=== PATIENT | female | born 1990 | race American Indian/Alaskan Native ===

== ENCOUNTER 2021-02-05 00:15 | Inpatient (IN) | payer BC ==
[2021-02-05] MEDS ORDERED: LACTATED RINGERS 1,000 ML ONE (00:50)
[2021-02-05] MEDS ORDERED: LACTATED RINGERS 1,000 ML IV ONE (00:59)
[2021-02-05] MEDS ORDERED: BICITRA ORAL LIQD 30ML PO ONE (01:20)
[2021-02-05] MEDS ORDERED: FAMOTIDINE 20 MG/2 ML INJ IV ONE (01:20)
[2021-02-05] MEDS ORDERED: METOCLOPRAMIDE 10 MG/2 ML INJ IV ONE (01:20)
--- NOTE | 2021-02-05 01:25 | Anesthesia Day of Surgery ---
Anesthesia Day of Surgery - Day of Surgery Patient Examined: Yes Patient H&P Reviewed: Yes Patient is NPO: No (2099) Beta Blockers: No Cardiac Clearance: No Pulmonary Clearance: No Neil's Test: N/A
[2021-02-05] MEDS ORDERED: ONDANSETRON 4 MG/2 ML INJ IV PRN ×2 (01:27→05:08)
[2021-02-05] MEDS ORDERED: HYDROmorphone 1 MG/1 ML INJ IV PRN ×2 (01:27)
[2021-02-05] MEDS ORDERED: NALOXONE 0.4 MG/1 ML INJ IV PRN ×2 (01:27→05:08)
--- NOTE | 2021-02-05 01:27 | Anesthesia Consultation ---
Anesthesia Consult and Med Hx Date of service: 02/05/21 - Airway Anesthetic Teeth Evaluation: Good ROM Head & Neck: Adequate Mental/Hyoid Distance: Adequate Mallampati Class: Class II Intubation Access Assessment: Probably Good - Pulmonary Exam CTA: Yes - Cardiac Exam Cardiac Exam: RRR - Pre-Operative Health Status ASA Pre-Surgery Classification: ASA2, Emergency Proposed Anesthetic Plan: General, Spinal - Pulmonary Hx Smoking: No Hx Asthma: No Hx Respiratory Symptoms: No SOB: No COPD: No Home Oxygen Therapy: No Hx Pneumonia: No Hx Sleep Apnea: No - Cardiovascular System Hx Hypertension: No Hx Coronary Artery Disease: No Hx Heart Attack/AMI: No Hx Angina: No Hx Percutaneous Transluminal Coronary Angioplasty (PTCA): No Hx Cardia Arrhythmia: No Hx Pacemaker: No Hx Internal Defibrillator: No Hx Valvular Heart Disease: No Hx Heart Murmur: No Hx Peripheral Vascular Disease: No - Central Nervous System Hx Neuromuscular Disorder: No Hx Seizures: No CVA: No Hx Back Pain: No Hx Psychiatric Problems: No - Gastrointestinal Hx Ulcer: No Hx Gastroesophageal Reflux Disease: No - Endocrine Hx Renal Disease: No Hx End Stage Renal Disease: No Hx Cirrhosis: No Hx Liver Disease: No Hx Insulin Dependent Diabetes: No Hx Non-Insulin Dependent Diabetes: No Hx Thyroid Disease: No Hx Hypothyroidism: No Hx Hyperthyroidism: No - Hematic Hx Anemia: No Hx Sickle Cell Disease: No - Other Systems Hx Alcohol Use: Yes (niot since ) Hx Substance Use: No Hx Cancer: No Hx Obesity: No
[2021-02-05] MEDS ORDERED: ceFAZolin/Water 2 GM/20 ML 2 GM/20 ML SYRINGE IV ONE ×2 (01:29→02:06)
[2021-02-05] MEDS ORDERED: LACTATED RINGERS 1,000 ML IV SCH (01:30)
[2021-02-05 01:36] LABS: Basophils # (Auto) 0.1 K/mm3 (0.0-0.1); Basophils % (Auto) 0.5 % (0.0-1.8); Eosinophils # (Auto) 0.1 K/mm3 (0.0-0.4); Eosinophils % (Auto) 1.2 % (0.0-4.3); Hematocrit 34.2 % (30.3-42.9); Lymphocytes # (Auto) 2.3 K/mm3 (1.2-5.4); Mean Corpuscular HGB Conc 35 % (30-34); Mean Corpuscular Volume 89 fl (79-97); Monocytes # (Auto) 1.1 K/mm3 (0.0-0.8); Monocytes % (Auto) 9.3 % (0.0-7.3); Platelet Count 208 K/mm3 (140-440); Red Blood Count 3.86 M/mm3 (3.65-5.03); Red Cell Distribution Width 13.2 % (13.2-15.2)
[2021-02-05] MEDS ORDERED: KETAMINE/STERILE WATER 50 MG/ML SYRINGE ONE (01:47)
[2021-02-05] MEDS ORDERED: propofoL 200 MG/20 ML VIAL IV ONE (01:47)
[2021-02-05] MEDS ORDERED: SUCCINYLCHOLINE CHLORIDE 200 MG/10 ML INJ MDV ONE (01:47)
[2021-02-05] MEDS ORDERED: ceFAZolin/STERILE WATER 2 GM/20 ML SYRINGE IV ONE (02:00)
[2021-02-05] MEDS ORDERED: SODIUM CHLORIDE 0.9% IRR 1,500 ML BOTTLE IR ONE (02:00)
[2021-02-05] MEDS ORDERED: OXYTOCIN DRIP 30 UNITS/500 ML BAG IV SCH ×2 (02:00→05:08)
[2021-02-05] MEDS ORDERED: WATER FOR IRRIG STERILE 1,500 ML BOTTLE IR ONE (02:00)
[2021-02-05] MEDS ORDERED: KETOROLAC 30 MG/1 ML INJ ONE (02:14)
[2021-02-05] MEDS ORDERED: ONDANSETRON 4 MG/2 ML INJ ONE ×2 (02:16)
[2021-02-05] MEDS ORDERED: dexAMETHasone 20 MG/5 ML VIAL ONE (02:16)
[2021-02-05] MEDS ORDERED: HYDROmorphone 1 MG/1 ML INJ ONE ×2 (02:22)
[2021-02-05 02:26] LABS: Bacteria,Urine 1+ /HPF (Negative); Bilirubin,Urine NEG (Negative); Blood,Urine NEG (Negative); Color,Urine Straw (Yellow); Mucus,Urine FEW /HPF; Protein,Urine <15 mg/dL mg/dL (Negative); RBC,Urine < 1.0 /HPF (0.0-6.0); Urobilinogen,Urine < 2.0 mg/dL (<2.0); WBC,Urine < 1.0 /HPF (0.0-6.0)
[2021-02-05 02:31] LABS: Amphetamine Screen,Urine Negative; Benzodiazepines Screen,Urine Negative; Cannabinoid Screen,Urine Negative; Cocaine Screen,Urine Negative; Methadone Screen,Urine Negative; Opiate Screen,Urine Negative
[2021-02-05] MEDS ORDERED: BUPIVACAINE/PF (0.25%) 2.5 MG/ML 30 ML VIAL INFILTRATI ONE ×3 (03:05)
--- NOTE | 2021-02-05 03:14 | History and Physical Report ---
History of Present Illness Date of examination: 02/05/21 Date of admission: 02/05/21 01:52 Chief complaint: I'm bleeding History of present illness: Patient is a 30-year-old 4 para 3 who presents at 29 weeks and 3 days with complaint of heavy vaginal bleeding and pain. Upon entry to triage patient was found to be having variable decelerations. Patient reports that the has renal enlargement and that she was told the would likely not live for long after . Patient receives care at the [facility] in [place]. No records were available for review. Past History Past Medical History: no pertinent history Past Surgical History: no surgical history Social history: single - Obstetrical History Expected Date of Delivery: 04/20/21 Actual Gestation: 29 Week(s) 3 Day(s) : 4 Para: 3 Number of Living Children: 3 Medications and Allergies Allergies Allergy/AdvReac Type Severity Reaction Status Date / Time No Known Allergies Allergy Unverified 02/05/21 00:59 Active Meds: Active Medications Hydromorphone HCl (Hydromorphone 1 Mg/1 Ml Inj) 0.5 mg IV Q5M PRN PRN Reason: BREAK Stop: 02/05/21 08:52 Hydromorphone HCl (Hydromorphone 1 Mg/1 Ml Inj) 0.5 mg IV Q4H PRN PRN Reason: breakthrough pain > 7/10 Lactated Ringer's (Lactated Ringers) 1,000 mls @ 2,250 mls/hr IV PREOP RELL Stop: 02/06/21 01:57 Oxytocin/Sodium Chloride (Pitocin/Ns 30 Unit/500ml) 30 units in 500 mls @ 0 mls/hr IV TITR RELL; Protocol Naloxone HCl (Naloxone 0.4 Mg/1 Ml Inj) 0.2 mg IV Q2MIN PRN PRN Reason: Res Rate </= 8 or 02 SAT < 92% Ondansetron HCl (Ondansetron 4 Mg/2 Ml Inj) 4 mg IV Q8H PRN PRN Reason: Nausea And Vomiting Sodium Chloride (Sodium Chloride 0.9% 10 Ml Flush Syringe) 10 ml IV PRN NR Stop: 02/06/21 01:59 Review of Systems All systems: negative Eyes: deferred Ears, nose, mouth and throat: deferred Genitourinary: vaginal bleeding, leakage of fluid, contractions - Vital Signs Vital signs: Vital Signs Temp Pulse Resp BP Pulse Ox 98.5 F 82 18 113/78 100 02/05/21 00:42 02/05/21 00:42 02/05/21 00:42 02/05/21 00:42 02/05/21 00:42 Temp Pulse Resp BP Pulse Ox 98.5 F 100 H 18 113/78 100 02/05/21 00:42 02/05/21 01:47 02/05/21 00:42 02/05/21 00:42 02/05/21 01:47 - Physical Exam Breasts: Positive: deferred Cardiovascular: Regular rate, Normal S1, Normal S2 Lungs: Positive: Clear to auscultation, Normal air movement Abdomen: Positive: normal appearance, soft, normal bowel sounds. Negative: distention, tenderness Genitourinary (Female): Positive: normal external genitalia, normal perenium Vulva: both: normal Vagina: Positive: normal moisture. Negative: discharge Cervix: Negative: lesion, discharge Uterus: Positive: normal size, normal contour Adnexa: both: normal Anus/Rectum: Positive: normal perianal skin, heme negative. Negative: rectal mass, hemorrhoids Extremities: Deep Tendon Reflex Grade: Normal +2 - Obstetrical FHR: category 2 Results Result Diagrams: 02/05/21 14:20 Abnormal lab results 02/05/21 Range/Units 01:08 WBC 12.0 H (4.5-11.0) K/mm3 MCHC 35 H (30-34) % Eagle % (Auto) 9.3 H (0.0-7.3) % [place] # (Auto) 1.1 H (0.0-0.8) K/mm3 Seg Neutrophils # 8.4 H (1.8-7.7) K/mm3 All other labs normal. Assessment and Plan IUP at 29 weeks and 3 days with signs and symptoms of placental abruption. As no records are available for review, we will proceed with urgent section. Consents have been signed and placed on the chart.
--- NOTE | 2021-02-05 03:15 | Procedure Note ---
OB Delivery Note - Delivery Date of Delivery: 02/05/21 Surgeon: JUSTYN SHRESTHA Estimated blood loss: other (600) - Section Preop diagnosis: nonreassuring FHR tracing, other (bleeding) Postop diagnosis: same (with placental abruption) section procedure: primary low transverse Disposition: PACU Narrative: see op note - A at 1 minute: 2 at 5 minutes: 4 (10 =4) Gender: Female
--- NOTE | 2021-02-05 03:18 | Operative Report ---
Operative Report Operative Report: Preoperative diagnosis: Intrauterine at 29.3 weeks 2. Vaginal bleeding 3. NRFHTs Postoperative diagnosis: Same with placental abruption Procedure: Emergent Primary low transverse section Surgeon: Dr. Paulette Gomez EBL: 600 Urine output: 100 mL IV fluids: 1000 mL Findings: Viable female in the Weight 3 lbs. 1 oz. Apgars 2 and 2, 4. Otherwise normal pelvic anatomy Specimens: Placenta with obvious abruption Complications: None Procedure: The patient was admitted to the OR with IV running and in place. She was properly identified as herself. she was prepped and draped in the normal fa shion. She was then given general anesthesia in the OR without difficulty. She was placed in the dorsal supine position with a leftward tilt. A Triana catheter had been inserted prior to entry in to the OR. The incision was made with the scalpel and carried to the underlying fascia using the scalpel and the Bovie. The fascia was incised in the midline and incision was extended bilaterally using the curved Villarreal scissors. The fascia was then dissected from the underlying rectus muscles in a series of sharp and blunt dissection using the Villarreal scissors. Muscles were in the in the midline sharply using Metzenbaum scissors and the peritoneum was entered into bluntly using the surgeon's fingers. A bladder blade was then placed into the incision to protect the bladder. Following this the bladder flap was created. Hysterotomy incision was then made in the scalpel. Upon uterine entry, the amniotic sac was ruptured for bloody fluid. The was then delivered without difficulty. . The cord was clamped and cut and she was handed to the waiting NICU personnel. Pieces of the placenta were extruded immediately post delivery of the baby without prompting. The uterus was then exteriorized and cleared of all clots and debris. The hysterotomy incision was then closed in a running locked fashion using 0 Vicryl. The abdomen was then copiously irrigated with warm normal saline.Following this the uterus was replaced into the abdominal cavity. At this point the muscles were reapproximated in the midline using individual sutures of 0 Vicryl. Following this the fascia was closed in a running fashion using 0 Vicryl. Tissue was then copiously irrigated. Skin was closed in a running fashion using 3-0 Monocryl. The sponge lap needle and instrument counts were correct 2. The patient tolerated the procedure well. She was taken to recovery in stable condition.
--- NOTE | 2021-02-05 03:40 | Progress Note ---
Regional Anesthesia Block - Regional Anesthesia Block Start Time: 03:09 Stop Time: :19 Performed By:: JEROME OHARA Procedure: Patient consented for TAP block for post surgical pain management. Patient identified, monitors placed, and time out performed. TAP identified bilaterally via ultrasound. Skin prepped bilaterally with [chlorhexidine] and [22g stimuplex] needle advanced to the TAP. [Marcaine 0.25% 30ml] injected under ultrasound guidance on the [left] side. [Marcaine 0.25% 30ml] injected under ultrasound guidance on the [right] side. Negative aspiration every 5mL, No change in heart rate or rhythm. Patient tolerated the procedure well. No apparent complications seen.
[2021-02-05 04:31] LABS: Hepatitis C Virus Antibody Non-Reactive (NonReactive)
[2021-02-05] MEDS ORDERED: SIMETHICONE 80 MG CHEW TAB PO PRN (05:08)
[2021-02-05] MEDS ORDERED: WITCH HAZEL/ GLYCERIN PAD TP PRN (05:08)
[2021-02-05] MEDS ORDERED: LANOLIN/ZINC/DIMETHICONE (LANSINOH) 7 GM TP PRN (05:08)
[2021-02-05] MEDS ORDERED: MORPHINE 4 MG/1 ML INJ IV PRN (05:08)
[2021-02-05] MEDS ORDERED: ACETAMINOPHEN 325 MG TAB PO PRN (05:08)
[2021-02-05] MEDS: D5W/LACTATED RINGERS 1,000 ML IV SCH ×2 (06:16→13:38)
[2021-02-05] MEDS: oxyCODONE /ACETAMINOPHEN 5-325MG TAB PO PRN ×3 (07:30→21:34)
[2021-02-05] MEDS: IBUPROFEN 800 MG TAB PO PRN (12:39)
[2021-02-05] MEDS: PRENATAL VIT27-FE FUMARATE-FOLIC ACID VIT TAB PO SCH (12:39)
--- NOTE | 2021-02-05 14:59 | Post Anesthesia Evaluation ---
- Post Anesthesia Evaluation Patient Participated: Yes Airway Patent: Yes Stable Respiratory Function: Yes Nausea/Vomiting: No Temp > 96.8F: Yes Pain Manageable: Yes Adequeate Hydration: Yes Anesthesia Complications: No Block Receding Appropriately: Yes Patient on Ventilator: No
[2021-02-05 15:07] LABS: Hematocrit 33.8 % (30.3-42.9); Hemoglobin 11.3 gm/dl (10.1-14.3)
[2021-02-06] MEDS: oxyCODONE /ACETAMINOPHEN 5-325MG TAB PO PRN ×3 (05:56→22:42)
[2021-02-06] MEDS: PRENATAL VIT27-FE FUMARATE-FOLIC ACID VIT TAB PO SCH (10:21)
[2021-02-06] MEDS: IBUPROFEN 800 MG TAB PO PRN (12:18)
--- NOTE | 2021-02-06 13:06 | Consultation ---
History of Present Illness - Reason for Consult Consult date: 02/06/21 Reason for consult: Mental health evaluation - Chief Complaint Chief complaint: I'm bleeding - History of Present Psychiatric Illness Gloria Kim is a 30 year female with no prior psychiatric history and she is naive to psychotropic medications. In my interview with the patient, she reports feeling depressed due to the demise of her baby, states symptoms as sadness, anger and some anxiety; she rates depression as 9/10 on a scale of 1-10 and 10 being the worst. She reports having three other children and has family support. She denies any current suicidal/ homicidal ideation and denies hallucination. Diagnoses: Denies Suicide attempts or Self-harm behavior: Denies Prior psychiatric hospitalizations: Denies Substance Abuse history: Denies Previous psychiatric medications tried: Denies Outpatient treatment: Denies PAST MEDICAL HISTORY: unknown Family Psychiatric History: None reported or documented SOCIAL HISTORY Marital Status: Living Arrangements: Lives with family Employment Status: unknown Access to guns/weapons: Denies Education: 2 year college History of Abuse: none reported Legal History: none reported REVIEW OF SYSTEMS Constitutional: Negative for weight loss ENT: Negative for stridor Respiratory: Negative for cough or hemoptysis All other systems reviewed and are negative MENTAL STATUS EXAMINATION General Appearance and Behavior: Age appropriate, dressed appropriately, calm and cooperative Cooperation: Participating Psychomotor Behavior: psychomotor normal Mood: Depressed Affect and affective range: Congruent with stated mood Thought Process: goal directed Thought Content: Not SI Speech: Normal volume, Regular rate and rhythm, Intellectual Functioning: Average Suicidal Ideation: Denied Homicidal Ideation: Denies Hallucinations: Denies Delusions: None elicited Impulse Control: Unimpaired Insight and Judgment: Limited insight and judgment Memory: Normal Attention: Undivided Orientation: Alert, oriented Assessment and Plan (1)Schizophrenia-F20.9 Treatment plan Start Prozac 10mg po daily Start Trazodone 50mg po QHS Risks, benefits and alternatives of medications discussed with the patient, blair wagoner answered and consent obtained from patient. PSYCHOTHERAPY: Supportive psychotherapy provided MEDICAL: Per primary team DELIRIUM PRECAUTIONS: Please re-orient patient frequently, keep lights on during the day, and minimize benzodiazepines and opiates as these medications could worsen patient's confusion. COMPLIANCE PARALEGAL: Per medical team DISPOSITION: Do not recommend acute inpatient psychiatric hospitalization at this time. The patient understands that if suicidal or homicidal thoughts are to arise she is to seek immediate assistance. The field assessor to place resources on the chart FOLLOW-UP: Will sign off Thank you for the consult. Please contact with any questions and/or concerns. Case staffed with Dr. Pemberton Mental Status Exam Medications and Allergies Allergies Allergy/AdvReac Type Severity Reaction Status Date / Time No Known Allergies Allergy Unverified 02/05/21 00:59 Home Medications Medication Instructions Recorded Confirmed Last Taken Type FLUoxetine [PROzac] 10 mg PO QDAY 30 Days #30 tablet 02/06/21 Unknown Rx traZODone [Desyrel] 50 mg PO QHS 30 Days #30 tab 02/06/21 Unknown Rx Active Meds: Active Medications Acetaminophen (Acetaminophen 325 Mg Tab) 650 mg PO Q4H PRN PRN Reason: Fever >100.5/KELLER Fluoxetine HCl (Fluoxetine 10 Mg Tab) 10 mg PO QDAY RELL Oxytocin/Sodium Chloride (Pitocin/Ns 30 Unit/500ml) 30 units in 500 mls @ 40 mls/hr IV TITR RELL; Protocol Dextrose/Lactated Ringer's (D5lr) 1,000 mls @ 125 mls/hr IV DIRECT RELL Last Admin: 02/05/21 13:38 Dose: 125 mls/hr Documented by: Ibuprofen (Ibuprofen 800 Mg Tab) 800 mg PO Q6H PRN PRN Reason: Pain, Moderate (4-6) Last Admin: 02/06/21 12:18 Dose: 800 mg Documented by: Morphine Sulfate (Morphine 4 Mg/1 Ml Inj) 4 mg IV Q4H PRN PRN Reason: Pain , Severe (7-10) Last Admin: 02/05/21 06:21 Dose: 4 mg Documented by: Multi-Ingredient Ointment (Lanolin/Zinc/Dimethicone (Lansinoh) 7 Gm) 1 applic TP PRN PRN PRN Reason: dryness/cracking Multivitamins/Iron/Calcium ( [id number]-Mv Fumarate-Folic Acid Vit Tab) 1 each PO QDAY RELL Last Admin: 02/06/21 10:21 Dose: 1 each Documented by: Naloxone HCl (Naloxone 0.4 Mg/1 Ml Inj) 0.1 mg IV Q2MIN PRN PRN Reason: Res Rate </= 8 or 02 SAT < 92% Ondansetron HCl (Ondansetron 4 Mg/2 Ml Inj) 4 mg IV Q8H PRN PRN Reason: Nausea And Vomiting Oxycodone/Acetaminophen (Oxycodone /Acetaminophen 5-325mg Tab) 2 tab PO Q4H PRN PRN Reason: Pain, Moderate (4-6) Last Admin: 02/06/21 12:17 Dose: 2 tab Documented by: Simethicone (Simethicone 80 Mg Chew Tab) 80 mg PO Q6H PRN PRN Reason: Gas pain Trazodone HCl (Trazodone 50 Mg Tab) 50 mg PO QHS RELL Witch Symone/Glycerin (Witch Syomne/ Glycerin Pad) 1 each TP PRN PRN PRN Reason: Hemorrhoids/cleansing/soothing Mental Status Exam - Vital signs Last Vital Signs Temp 98.0 F 02/06/21 12:12 Pulse 73 02/06/21 12:12 Resp 20 02/06/21 12:12 BP 122/66 02/06/21 12:12 Pulse Ox 100 02/06/21 12:12 Results Result Diagrams: 02/05/21 14:20 All other labs normal.
--- NOTE | 2021-02-06 13:29 | Progress Note ---
Subjective - Subjective Date of service: 02/06/21 Interval history: Patient is a 30-year-old 4 para 3 who presents at 29 weeks and 3 days with complaint of heavy vaginal bleeding and pain. Upon entry to triage patient was found to be having variable decelerations. Patient reports that the has renal enlargement and that she was told the would likely not live for long after . Patient receives care at the [facility] in [place]. No records were available for review. Patient reports: appetite normal, voiding normally, pain well controlled, ambulating normally : Objective - Vital Signs Latest vital signs: Vital Signs Temp Pulse Resp BP BP Pulse Ox Pulse Ox 02/06/21 12:12 98.0 F 73 20 122/66 100 02/06/21 08:00 0 L 02/06/21 07:25 97.8 F 71 16 104/70 100 02/06/21 05:54 100 02/06/21 04:49 98.2 F 85 20 109/63 100 02/06/21 04:30 100 02/06/21 02:10 98 02/06/21 00:25 98.2 F 65 20 108/46 100 02/05/21 23:21 99 02/05/21 21:32 100 02/05/21 21:10 98.0 F 76 20 96/54 100 02/05/21 19:25 99 02/05/21 16:29 98.8 F 94 H 18 104/68 100 Intake and Output 02/05/21 02/06/21 02/06/21 22:59 06:59 14:59 Intake Total 840 360 200 Output Total 1200 800 Balance -360 -440 200 Intake: Oral 480 360 200 Intake, Free Water 360 Output: Urine 1200 800 Indwelling Catheter 1200 Void 800 Other: Total, Intake Amount 240 120 200 Total, Output Amount 1200 500 # Voids Void 1
[2021-02-06] MEDS: FLUoxetine 10 MG TAB PO SCH (14:44)
[2021-02-06] MEDS ORDERED: traZODone 50 MG TAB PO SCH (22:00)
--- NOTE | 2021-02-06 22:53 | Discharge Summary ---
Providers - Providers Date of Admission: 02/05/21 01:52 Date of discharge: 02/07/21 Attending physician: JUSTYN SHRESTHA 02/06/21 11:30 psychiatry consult [Consult to Mental Health] [CONS] Urgent Reason For Exam: [place] over 16 Primary care physician: JUSTYN SHRESTHA Hospitalization Reason for admission: other (placental abruption) Delivery: Procedure: primary low transverse Procedure details: see op report Episiotomy: none Incision: normal, dry, intact complications: none Discharge diagnosis: delivery [place] baby: female Hospital course: 2 hours after born secondary to multiple anomalies and prematurity. Condition at discharge: Good Disposition: DC- TO HOME OR SELFCARE Plan - Discharge Medications Prescriptions: Docusate Sodium [Colace] 100 mg PO BID #60 capsule traZODone [Desyrel] 50 mg PO QHS 30 Days #30 tab Ferrous Sulfate [Feosol 325 MG tab] 325 mg PO BID #60 tablet Ibuprofen [Motrin] 800 mg PO Q8HR PRN #40 tablet PRN Reason: Pain, Mild (1-3) oxyCODONE /ACETAMINOPHEN [Percocet 5/325] 2 tab PO Q6HR PRN #40 tablet PRN Reason: Pain FLUoxetine [PROzac] 10 mg PO QDAY 30 Days #30 tablet - Provider Discharge Summary Activity: routine, no sex for 6 weeks, no heavy lifting 4 weeks, no strenuous exercise Diet: routine Instructions: routine Additional instructions: [] Smoking cessation referral if applicable(refer to patient education folder for contact #) [] Refer to [facility] Booklet Call your doctor immediately for: * Fever > 100.5 * Heavy vaginal bleeding ( >1 pad per hour) * Severe persistent headache * Shortness of breath * Reddened, hot, painful area to leg or breast * Drainage or odor from incision. * Keep incision clean and dry at all times and follow doctor's instructions regarding bathing/showering - Follow up plan Follow up: JUSTYN SHRESTHA MD [Primary Care Provider] - 14 Days
[2021-02-07] MEDS: oxyCODONE /ACETAMINOPHEN 5-325MG TAB PO PRN (08:59)
[2021-02-07] MEDS: FLUoxetine 10 MG TAB PO SCH (08:59)
[2021-02-07] MEDS: PRENATAL VIT27-FE FUMARATE-FOLIC ACID VIT TAB PO SCH (08:59)
[2021-02-07 12:41] VITALS: BP 111/71
== END 2021-02-07 13:35 | disposition home or self-care (01) | DRG 786 ==
LOC: TRG 00:15 → APU 00:19 → TRG 01:51 → APU 01:52 → OBSVTOIN 01:52 → OB 04:38
PROVIDERS: ADMIT Obstetrics & Gynecology; ATTEND Obstetrics & Gynecology
PROC: 10D00Z1 Extraction of Products of Conception, Low, Open Approach (ICD-10-PCS; principal; 2021-02-05)
DX: O76 Abnormality in fetal heart rate and rhythm complicating labor and delivery (principal); O45.93 Premature separation of placenta, unspecified, third trimester; O60.14X0 Preterm labor third trimester with preterm delivery third trimester, not applicable or unspecified; O99.344 Other mental disorders complicating childbirth; F20.9 Schizophrenia, unspecified; F32.9 Major depressive disorder, single episode, unspecified; Z20.822 Contact with and (suspected) exposure to COVID-19; Z3A.29 29 weeks gestation of pregnancy; Z37.0 Single live birth
CPT/HCPCS: 36415; 59025; 80307; 81001; 85014; 85018; 85025; 86592; 86706; 86762; 86803; 86850; 86900; 86901; 87806; 88307; 96360; G0378; J0330; J0690; J1100; J1170; J1885; J2270; J2405; J2704; J2765; J3490; J7121; U0003

== ENCOUNTER 2022-03-05 14:46 | Inpatient (IN) | payer BC ==
[2022-03-05] MEDS ORDERED: LACTATED RINGERS 500 ML IV ONE (16:45)
[2022-03-05] MEDS: BETAMET ACET/BETAMET NA PH 6 MG/ML INJ 5 ML MDV IM SCH (16:58)
[2022-03-05] MEDS ORDERED: MAGNESIUM SULFATE 4 GM/100 ML BAG IV ONE (18:46)
[2022-03-05] MEDS ORDERED: MAGNESIUM SULFATE 40GM/1000ML 40 GM/1,000 ML BAG IV ONE (18:46)
[2022-03-05] MEDS: LACTATED RINGERS 1,000 ML IV SCH ×2 (19:02→21:42)
[2022-03-05] MEDS ORDERED: WITCH HAZEL/ GLYCERIN PAD TP PRN (23:58)
[2022-03-05] MEDS ORDERED: PSEUDOEPHEDRINE 30 MG TAB PO PRN (23:58)
[2022-03-05] MEDS ORDERED: ONDANSETRON 4 MG/2 ML INJ IV PRN (23:58)
[2022-03-05] MEDS ORDERED: SIMETHICONE 80 MG CHEW TAB PO PRN (23:58)
[2022-03-05] MEDS ORDERED: DOCUSATE SODIUM 100 MG CAP PO PRN (23:58)
[2022-03-05] MEDS ORDERED: ACETAMINOPHEN 325 MG TAB PO PRN (23:58)
[2022-03-05] MEDS ORDERED: diphenhydrAMINE 25 MG CAP PO PRN (23:58)
[2022-03-06 04:52] LABS: Color,Urine Colorless (Yellow)
[2022-03-06 04:56] LABS: Mucus,Urine FEW /HPF; RBC,Urine < 1.0 /HPF (0.0-6.0); WBC,Urine < 1.0 /HPF (0.0-6.0)
[2022-03-06 06:26] LABS: Hematocrit 31.8 % (30.3-42.9); Hemoglobin 10.3 gm/dl (10.1-14.3); Mean Corpuscular HGB Conc 32 % (30-34); Mean Corpuscular Volume 85 fl (79-97); Platelet Count 217 K/mm3 (140-440); Red Blood Count 3.74 M/mm3 (3.65-5.03); Red Cell Distribution Width 14.3 % (13.2-15.2)
[2022-03-06] MEDS ORDERED: PRENATAL VIT27-FE FUMARATE-FOLIC ACID VIT TAB PO SCH (10:00)
--- NOTE | 2022-03-06 10:01 | History and Physical Report ---
History of Present Illness Date of examination: 03/06/22 Date of admission: 03/05/22 14:46 Chief complaint: I'm having pain History of present illness: Patient is a 31-year-old 4 para 3002 who presented to the office today with complaint of pain and pressure. Exam in office revealed her to be approximately 3 cm dilated and 50% effaced -3 station with no evidence of fully active contractions. Patient was advised proceed to labor and delivery for admission and management of labor. course has been relatively uncomplicated. Her labs are normal and her GBS is unknown. Her last was complicated by several abnormalities and subsequent placental abruption which ended in a . The infant shortly after at approximately 29 weeks gestation. Past History Past Medical History: no pertinent history Past Surgical History: section Family/Genetic History: none Social history: - Obstetrical History Expected Date of Delivery: 04/29/22 Actual Gestation: 32 Week(s) 2 Day(s) : 4 Para: 3 Hx # Term Pregnancies: 2 Number of Pregnancies: 1 Number of Living Children: 2 Medications and Allergies Allergies Allergy/AdvReac Type Severity Reaction Status Date / Time No Known Allergies Allergy Unverified 02/05/21 00:59 Home Medications Medication Instructions Recorded Confirmed Last Taken Type Docusate Sodium [Colace] 100 mg PO BID #60 capsule 02/06/21 Unknown Rx FLUoxetine [PROzac] 10 mg PO QDAY 30 Days #30 tablet 02/06/21 Unknown Rx Ferrous Sulfate [Feosol 325 MG tab] 325 mg PO BID #60 tablet 02/06/21 Unknown Rx Ibuprofen [Motrin] 800 mg PO Q8HR PRN #40 tablet 02/06/21 Unknown Rx oxyCODONE /ACETAMINOPHEN [Percocet 2 tab PO Q6HR PRN #40 tablet 02/06/21 Unknown Rx 5/325] traZODone [Desyrel] 50 mg PO QHS 30 Days #30 tab 02/06/21 Unknown Rx Active Meds: Active Medications Acetaminophen (Acetaminophen 325 Mg Tab) 650 mg PO Q4H PRN PRN Reason: Pain MILD(1-3)/Fever >100.5/KELLER Last Admin: 03/06/22 01:56 Dose: 650 mg Betamethasone Acet/Betameth SodPhos (Betamet Acet/Betamet Na Ph 6 Mg/Ml Inj 5 Ml Mdv) 12 mg IM Q24HR [facility] Stop: 03/06/22 19:00 Last Admin: 03/05/22 16:58 Dose: 12 mg Diphenhydramine HCl (Diphenhydramine 25 Mg Cap) 25 mg PO Q6H PRN PRN Reason: Itching Docusate Sodium (Docusate Sodium 100 Mg Cap) 100 mg PO Q12H PRN PRN Reason: Constipation Lactated Ringer's (Lactated Ringers) 1,000 mls @ 125 mls/hr IV DIRECT [facility] Last Admin: 03/05/22 21:42 Dose: 75 mls/hr Multivitamins/Iron/Calcium ( Vui81-Pk Fumarate-Folic Acid Vit Tab) 1 each PO QDAY [facility] Last Admin: 03/06/22 09:21 Dose: 1 each Ondansetron HCl (Ondansetron 4 Mg/2 Ml Inj) 4 mg IV Q6H PRN PRN Reason: Nausea And Vomiting Pseudoephedrine HCl (Pseudoephedrine 30 Mg Tab) 30 mg PO Q4H PRN PRN Reason: Nasal Congestion Simethicone (Simethicone 80 Mg Chew Tab) 80 mg PO Q6H PRN PRN Reason: Gas pain Witch Symone/Glycerin (Witch Symone/ Glycerin Pad) 1 each TP PRN PRN PRN Reason: Hemorrhoids Review of Systems All systems: negative Breasts: deferred Gastrointestinal: abdominal pain Genitourinary: pelvic pain, contractions - Vital Signs Vital signs: Vital Signs Pulse BP Pulse Ox 82 109/67 84 03/05/22 15:48 03/05/22 15:48 03/05/22 15:48 Temp Pulse Resp BP Pulse Ox 97.5 F L 84 18 109/71 99 03/06/22 07:50 03/06/22 09:53 03/06/22 07:50 03/06/22 09:39 03/06/22 09:53 - Physical Exam Breasts: Positive: deferred Cardiovascular: Regular rate, Normal S1, Normal S2 Lungs: Positive: Clear to auscultation, Normal air movement Abdomen: Positive: normal appearance, soft, normal bowel sounds Genitourinary (Female): Positive: normal external genitalia, normal perenium Vagina: Positive: normal moisture Uterus: Positive: enlarged, normal contour - Obstetrical FHR: auscultation normal Cervical Dilatation: 3.5 Cervical Effacement Percentage: 50 station: -2 Uterine Contraction Pattern: Irregular Uterine Tone Measurement Phase: Resting Uterine Contraction Intensity: Mild Results Result Diagrams: 03/06/22 06:07 Abnormal lab results 03/06/22 03/06/22 Range/Units 06:07 06:07 WBC 13.6 H (4.5-11.0) K/mm3 Magnesium 6.00 H (1.7-2.3) mg/dL All other labs normal. Assessment and Plan IUP at 32 weeks with labor and cervical dilation to 3 cm. Patient was advised to proceed to labor and delivery where she is to be admitted. She is to receive betamethasone and magnesium for neuro protection. Patient was not actively feeling contractions upon arrival however was noted to be having contractions every 4 to 5 minutes apart. Will send urinalysis as well as standard labs. Will consult MFM and NICU for management and considerations. Continue bedrest with bathroom privileges.
[2022-03-06] MEDS: LACTATED RINGERS 1,000 ML IV SCH ×2 (10:31→22:40)
--- NOTE | 2022-03-06 10:35 | Progress Note ---
Assessment and Plan HD 1 for monitoring and treatment of labor. Pt to receive her second dose of betamethasone today and will go off magnesium on tomorrow morning. Continue current care. Monitor for increase in uterine activity or other signs of labor. Subjective - Subjective Date of service: 03/06/22 Interval history: Patient is a 31-year-old 4 para 3002 who presented to the office today with complaint of pain and pressure. Exam in office revealed her to be approximately 3 cm dilated and 50% effaced -3 station with no evidence of fully active contractions. Patient was advised proceed to labor and delivery for admission and management of labor. course has been relatively uncomplicated. Her labs are normal and her GBS is unknown. Her last was complicated by several abnormalities and subsequent placental abruption which ended in a . The infant shortly after at approximately 29 weeks gestation. Patient reports: new complaints (mild headache) Objective - Vital Signs Vital Signs: Vital Signs - 12hr 03/05/22 03/05/22 03/05/22 22:38 22:43 22:48 Temperature Pulse Rate 99 H 91 H 94 H Respiratory Rate Blood Pressure Blood Pressure [Right] O2 Sat by Pulse 96 97 97 Oximetry O2 Sat by Pulse Oximetry [ Bilateral Throughout] 03/05/22 03/05/22 03/05/22 22:53 22:56 22:58 Temperature Pulse Rate 94 H 91 H 96 H Respiratory Rate Blood Pressure 113/71 Blood Pressure [Right] O2 Sat by Pulse 97 98 Oximetry O2 Sat by Pulse Oximetry [ Bilateral Throughout] 03/05/22 03/05/22 03/05/22 23:03 23:08 23:13 Temperature Pulse Rate 97 H 82 90 Respiratory Rate Blood Pressure Blood Pressure [Right] O2 Sat by Pulse 98 97 97 Oximetry O2 Sat by Pulse Oximetry [ Bilateral Throughout] 03/05/22 03/05/22 03/05/22 23:18 23:23 23:28 Temperature Pulse Rate 88 78 84 Respiratory Rate Blood Pressure Blood Pressure [Right] O2 Sat by Pulse 97 96 98 Oximetry O2 Sat by Pulse Oximetry [ Bilateral Throughout] 03/05/22 03/05/22 03/05/22 23:33 23:38 23:39 Temperature Pulse Rate 81 88 81 Respiratory Rate Blood Pressure 109/62 Blood Pressure [Right] O2 Sat by Pulse 97 96 Oximetry O2 Sat by Pulse Oximetry [ Bilateral Throughout] 03/05/22 03/05/22 03/05/22 23:43 23:48 23:53 Temperature Pulse Rate 86 82 92 H Respiratory Rate Blood Pressure Blood Pressure [Right] O2 Sat by Pulse 97 97 98 Oximetry O2 Sat by Pulse Oximetry [ Bilateral Throughout] 03/05/22 03/06/22 03/06/22 23:58 00:03 00:08 Temperature Pulse Rate 84 86 86 Respiratory Rate Blood Pressure Blood Pressure [Right] O2 Sat by Pulse 97 97 97 Oximetry O2 Sat by Pulse Oximetry [ Bilateral Throughout] 03/06/22 03/06/22 03/06/22 00:13 00:18 00:23 Temperature Pulse Rate 125 H 85 87 Respiratory Rate Blood Pressure Blood Pressure [Right] O2 Sat by Pulse 97 98 98 Oximetry O2 Sat by Pulse Oximetry [ Bilateral Throughout] 03/06/22 03/06/22 03/06/22 00:28 00:33 00:38 Temperature Pulse Rate 90 79 80 Respiratory Rate Blood Pressure Blood Pressure [Right] O2 Sat by Pulse 98 99 99 Oximetry O2 Sat by Pulse Oximetry [ Bilateral Throughout] 03/06/22 03/06/22 03/06/22 00:40 00:43 00:48 Temperature Pulse Rate 75 79 85 Respiratory Rate Blood Pressure 111/69 Blood Pressure [Right] O2 Sat by Pulse 99 97 Oximetry O2 Sat by Pulse Oximetry [ Bilateral Throughout] 03/06/22 03/06/22 03/06/22 00:53 00:58 01:03 Temperature Pulse Rate 88 76 81 Respiratory Rate Blood Pressure Blood Pressure [Right] O2 Sat by Pulse 97 98 99 Oximetry O2 Sat by Pulse Oximetry [ Bilateral Throughout] 03/06/22 03/06/22 03/06/22 01:08 01:13 01:18 Temperature Pulse Rate 85 79 83 Respiratory Rate Blood Pressure Blood Pressure [Right] O2 Sat by Pulse 99 99 99 Oximetry O2 Sat by Pulse Oximetry [ Bilateral Throughout] 03/06/22 03/06/22 03/06/22 01:23 01:28 01:33 Temperature Pulse Rate 86 89 79 Respiratory Rate Blood Pressure Blood Pressure [Right] O2 Sat by Pulse 97 99 98 Oximetry O2 Sat by Pulse Oximetry [ Bilateral Throughout] 03/06/22 03/06/22 03/06/22 01:38 01:39 01:43 Temperature Pulse Rate 86 83 83 Respiratory Rate Blood Pressure 104/61 Blood Pressure [Right] O2 Sat by Pulse 98 98 Oximetry O2 Sat by Pulse Oximetry [ Bilateral Throughout] 03/06/22 03/06/22 03/06/22 01:48 01:53 01:58 Temperature Pulse Rate 85 81 82 Respiratory Rate Blood Pressure Blood Pressure [Right] O2 Sat by Pulse 98 98 98 Oximetry O2 Sat by Pulse Oximetry [ Bilateral Throughout] 03/06/22 03/06/22 03/06/22 02:03 02:08 02:13 Temperature Pulse Rate 85 83 91 H Respiratory Rate Blood Pressure Blood Pressure [Right] O2 Sat by Pulse 98 99 96 Oximetry O2 Sat by Pulse Oximetry [ Bilateral Throughout] 03/06/22 03/06/22 03/06/22 02:18 02:23 02:28 Temperature Pulse Rate 88 88 85 Respiratory Rate Blood Pressure Blood Pressure [Right] O2 Sat by Pulse 97 98 98 Oximetry O2 Sat by Pulse Oximetry [ Bilateral Throughout] 03/06/22 03/06/22 03/06/22 02:33 02:38 02:39 Temperature Pulse Rate 78 82 80 Respiratory Rate Blood Pressure 109/71 Blood Pressure [Right] O2 Sat by Pulse 98 98 Oximetry O2 Sat by Pulse Oximetry [ Bilateral Throughout] 03/06/22 03/06/22 03/06/22 02:43 02:48 02:53 Temperature Pulse Rate 83 81 80 Respiratory Rate Blood Pressure Blood Pressure [Right] O2 Sat by Pulse 98 97 99 Oximetry O2 Sat by Pulse Oximetry [ Bilateral Throughout] 03/06/22 03/06/22 03/06/22 02:58 03:03 03:08 Temperature Pulse Rate 81 78 83 Respiratory Rate Blood Pressure Blood Pressure [Right] O2 Sat by Pulse 98 98 98 Oximetry O2 Sat by Pulse Oximetry [ Bilateral Throughout] 03/06/22 03/06/22 03/06/22 03:13 03:18 03:23 Temperature Pulse Rate 87 80 79 Respiratory Rate Blood Pressure Blood Pressure [Right] O2 Sat by Pulse 97 98 98 Oximetry O2 Sat by Pulse Oximetry [ Bilateral Throughout] 03/06/22 03/06/22 03/06/22 03:28 03:33 03:38 Temperature Pulse Rate 83 89 84 Respiratory Rate Blood Pressure Blood Pressure [Right] O2 Sat by Pulse 98 98 97 Oximetry O2 Sat by Pulse Oximetry [ Bilateral Throughout] 03/06/22 03/06/22 03/06/22 03:39 03:43 03:48 Temperature Pulse Rate 81 88 81 Respiratory Rate Blood Pressure 112/75 Blood Pressure [Right] O2 Sat by Pulse 98 97 Oximetry O2 Sat by Pulse Oximetry [ Bilateral Throughout] 03/06/22 03/06/22 03/06/22 03:53 03:58 04:03 Temperature Pulse Rate 80 83 85 Respiratory Rate Blood Pressure Blood Pressure [Right] O2 Sat by Pulse 97 97 97 Oximetry O2 Sat by Pulse Oximetry [ Bilateral Throughout] 03/06/22 03/06/22 03/06/22 04:08 04:13 04:18 Temperature Pulse Rate 80 80 80 Respiratory Rate Blood Pressure Blood Pressure [Right] O2 Sat by Pulse 97 98 97 Oximetry O2 Sat by Pulse Oximetry [ Bilateral Throughout] 03/06/22 03/06/22 03/06/22 04:23 04:28 04:33 Temperature Pulse Rate 82 78 76 Respiratory Rate Blood Pressure Blood Pressure [Right] O2 Sat by Pulse 98 97 97 Oximetry O2 Sat by Pulse Oximetry [ Bilateral Throughout] 03/06/22 03/06/22 03/06/22 04:38 04:39 04:43 Temperature Pulse Rate 79 86 81 Respiratory Rate Blood Pressure 106/73 Blood Pressure [Right] O2 Sat by Pulse 97 98 Oximetry O2 Sat by Pulse Oximetry [ Bilateral Throughout] 03/06/22 03/06/22 03/06/22 04:48 04:53 04:58 Temperature Pulse Rate 76 77 82 Respiratory Rate Blood Pressure Blood Pressure [Right] O2 Sat by Pulse 98 99 98 Oximetry O2 Sat by Pulse Oximetry [ Bilateral Throughout] 03/06/22 03/06/22 03/06/22 05:03 05:08 05:13 Temperature Pulse Rate 78 80 81 Respiratory Rate Blood Pressure Blood Pressure [Right] O2 Sat by Pulse 96 97 97 Oximetry O2 Sat by Pulse Oximetry [ Bilateral Throughout] 03/06/22 03/06/22 03/06/22 05:18 05:23 05:28 Temperature Pulse Rate 83 84 87 Respiratory Rate Blood Pressure Blood Pressure [Right] O2 Sat by Pulse 97 97 97 Oximetry O2 Sat by Pulse Oximetry [ Bilateral Throughout] 03/06/22 03/06/22 03/06/22 05:33 05:38 05:39 Temperature Pulse Rate 86 79 91 H Respiratory Rate Blood Pressure 113/66 Blood Pressure [Right] O2 Sat by Pulse 97 97 Oximetry O2 Sat by Pulse Oximetry [ Bilateral Throughout] 03/06/22 03/06/22 03/06/22 05:43 05:48 05:53 Temperature Pulse Rate 81 83 81 Respiratory Rate Blood Pressure Blood Pressure [Right] O2 Sat by Pulse 97 97 98 Oximetry O2 Sat by Pulse Oximetry [ Bilateral Throughout] 03/06/22 03/06/22 03/06/22 05:58 06:03 06:08 Temperature Pulse Rate 80 79 103 H Respiratory Rate Blood Pressure Blood Pressure [Right] O2 Sat by Pulse 99 98 99 Oximetry O2 Sat by Pulse Oximetry [ Bilateral Throughout] 03/06/22 03/06/22 03/06/22 06:13 06:18 06:23 Temperature Pulse Rate 92 H 82 79 Respiratory Rate Blood Pressure Blood Pressure [Right] O2 Sat by Pulse 98 98 98 Oximetry O2 Sat by Pulse Oximetry [ Bilateral Throughout] 03/06/22 03/06/22 03/06/22 06:28 06:33 06:38 Temperature Pulse Rate 84 79 79 Respiratory Rate Blood Pressure Blood Pressure [Right] O2 Sat by Pulse 97 97 96 Oximetry O2 Sat by Pulse Oximetry [ Bilateral Throughout] 03/06/22 03/06/22 03/06/22 06:40 06:43 06:48 Temperature Pulse Rate 77 84 82 Respiratory Rate Blood Pressure 102/66 Blood Pressure [Right] O2 Sat by Pulse 96 96 Oximetry O2 Sat by Pulse Oximetry [ Bilateral Throughout] 03/06/22 03/06/22 03/06/22 06:53 06:58 07:03 Temperature Pulse Rate 78 78 83 Respiratory Rate Blood Pressure Blood Pressure [Right] O2 Sat by Pulse 98 97 97 Oximetry O2 Sat by Pulse Oximetry [ Bilateral Throughout] 03/06/22 03/06/22 03/06/22 07:08 07:13 07:18 Temperature Pulse Rate 76 88 81 Respiratory Rate Blood Pressure Blood Pressure [Right] O2 Sat by Pulse 98 98 98 Oximetry O2 Sat by Pulse Oximetry [ Bilateral Throughout] 03/06/22 03/06/22 03/06/22 07:23 07:28 07:33 Temperature Pulse Rate 95 H 84 88 Respiratory Rate Blood Pressure Blood Pressure [Right] O2 Sat by Pulse 97 98 99 Oximetry O2 Sat by Pulse Oximetry [ Bilateral Throughout] 03/06/22 03/06/22 03/06/22 07:37 07:38 07:43 Temperature Pulse Rate 91 H 101 H Respiratory Rate Blood Pressure Blood Pressure [Right] O2 Sat by Pulse 98 98 Oximetry O2 Sat by Pulse 98 Oximetry [ Bilateral Throughout] 03/06/22 03/06/22 03/06/22 07:48 07:50 07:53 Temperature 97.5 F L Pulse Rate 92 H 89 80 Respiratory 18 Rate Blood Pressure Blood Pressure 110/58 [Right] O2 Sat by Pulse 97 96 98 Oximetry O2 Sat by Pulse Oximetry [ Bilateral Throughout] 03/06/22 03/06/22 03/06/22 07:54 07:58 08:03 Temperature Pulse Rate 85 98 H 96 H Respiratory Rate Blood Pressure 110/58 Blood Pressure [Right] O2 Sat by Pulse 97 97 Oximetry O2 Sat by Pulse Oximetry [ Bilateral Throughout] 03/06/22 03/06/22 03/06/22 08:08 08:13 08:18 Temperature Pulse Rate 103 H 102 H 95 H Respiratory Rate Blood Pressure Blood Pressure [Right] O2 Sat by Pulse 98 97 97 Oximetry O2 Sat by Pulse Oximetry [ Bilateral Throughout] 03/06/22 03/06/22 03/06/22 08:23 08:28 08:33 Temperature Pulse Rate 92 H 85 98 H Respiratory Rate Blood Pressure Blood Pressure [Right] O2 Sat by Pulse 98 97 98 Oximetry O2 Sat by Pulse Oximetry [ Bilateral Throughout] 03/06/22 03/06/22 03/06/22 08:38 08:39 08:43 Temperature Pulse Rate 96 H 90 84 Respiratory Rate Blood Pressure 105/73 Blood Pressure [Right] O2 Sat by Pulse 98 98 Oximetry O2 Sat by Pulse Oximetry [ Bilateral Throughout] 03/06/22 03/06/22 03/06/22 08:48 08:53 08:58 Temperature Pulse Rate 89 91 H 95 H Respiratory Rate Blood Pressure Blood Pressure [Right] O2 Sat by Pulse 98 99 98 Oximetry O2 Sat by Pulse Oximetry [ Bilateral Throughout] 03/06/22 03/06/22 03/06/22 09:03 09:08 09:13 Temperature Pulse Rate 106 H 92 H 85 Respiratory Rate Blood Pressure Blood Pressure [Right] O2 Sat by Pulse 99 98 99 Oximetry O2 Sat by Pulse Oximetry [ Bilateral Throughout] 03/06/22 03/06/22 03/06/22 09:18 09:23 09:28 Temperature Pulse Rate 79 79 81 Respiratory Rate Blood Pressure Blood Pressure [Right] O2 Sat by Pulse 99 98 99 Oximetry O2 Sat by Pulse Oximetry [ Bilateral Throughout] 03/06/22 03/06/22 03/06/22 09:33 09:38 09:39 Temperature Pulse Rate 78 78 79 Respiratory Rate Blood Pressure 109/71 Blood Pressure [Right] O2 Sat by Pulse 96 99 Oximetry O2 Sat by Pulse Oximetry [ Bilateral Throughout] 03/06/22 03/06/22 03/06/22 09:43 09:48 09:53 Temperature Pulse Rate 83 87 84 Respiratory Rate Blood Pressure Blood Pressure [Right] O2 Sat by Pulse 99 98 99 Oximetry O2 Sat by Pulse Oximetry [ Bilateral Throughout] 03/06/22 03/06/22 03/06/22 09:58 10:03 10:08 Temperature Pulse Rate 82 82 81 Respiratory Rate Blood Pressure Blood Pressure [Right] O2 Sat by Pulse 98 98 99 Oximetry O2 Sat by Pulse Oximetry [ Bilateral Throughout] 03/06/22 03/06/22 03/06/22 10:13 10:18 10:23 Temperature Pulse Rate 90 89 96 H Respiratory Rate Blood Pressure Blood Pressure [Right] O2 Sat by Pulse 98 99 99 Oximetry O2 Sat by Pulse Oximetry [ Bilateral Throughout] 03/06/22 10:28 Temperature Pulse Rate 97 H Respiratory Rate Blood Pressure Blood Pressure [Right] O2 Sat by Pulse 99 Oximetry O2 Sat by Pulse Oximetry [ Bilateral Throughout] - Exam Breasts: deferred Cardiovascular: Regular rate, Normal S1, Normal S2 Lungs: Clear to auscultation, Normal air movement Abdomen: Present: normal appearance, soft, normal bowel sounds Uterus: Present: normal, firm FHR: auscultation normal Uterine Contraction Monitor Mode: External - Labs Labs: Abnormal Labs 03/06/22 03/06/22 06:07 06:07 WBC 13.6 H Magnesium 6.00 H Laboratory Results - last 24 hr 03/06/22 03/06/22 03/06/22 06:07 06:07 06:07 WBC 13.6 H RBC 3.74 Hgb 10.3 Hct 31.8 MCV 85 MCH 28 MCHC 32 RDW 14.3 Plt Count 217 Magnesium Urine Color Urine Turbidity Specific [place] (Man) Ur Protein (Man) Ur Ketones (Man) Urine Bilirubin (Man) Urine WBC (Auto) Urine RBC (Auto) Urine RBC (Manual) Urine Mucus Syphilis IgG/IgM Ab Nonreactive Blood Type O POSITIVE Antibody Screen Negative 03/06/22 03/06/22 06:07 Unknown WBC RBC Hgb Hct MCV MCH MCHC RDW Plt Count Magnesium 6.00 H Urine Color Colorless Urine Turbidity Clear Specific [place] (Man) 1.015 Ur Protein (Man) Negative Ur Ketones (Man) Negative Urine Bilirubin (Man) Negative Urine WBC (Auto) < 1.0 Urine RBC (Auto) < 1.0 Urine RBC (Manual) Negative Urine Mucus Few Syphilis IgG/IgM Ab Blood Type Antibody Screen
[2022-03-06] MEDS ORDERED: MAGNESIUM SULFATE 40GM/1000ML 40 GM/1,000 ML BAG IV ONE (19:15)
[2022-03-06] MEDS: BETAMET ACET/BETAMET NA PH 6 MG/ML INJ 5 ML MDV IM SCH (19:19)
[2022-03-07] MEDS ORDERED: FAMOTIDINE 20 MG/2 ML INJ IV ONE (06:08)
[2022-03-07] MEDS ORDERED: BICITRA ORAL LIQD 30ML ONE (06:08)
[2022-03-07] MEDS ORDERED: OXYTOCIN DRIP 30,000 MILLIUNITS/500 ML BAG IV ONE (06:08)
[2022-03-07] MEDS ORDERED: METOCLOPRAMIDE 10 MG/2 ML INJ ONE (06:08)
--- NOTE | 2022-03-07 13:25 | Progress Note ---
Assessment and Plan IUP at 32 weeks admitted for labor with contractions and dilation. Pt has been off magnesium since this morning. If patient remains stable overnight will discharge home in the am with precautions until 36 weeks. Subjective - Subjective Date of service: 03/07/22 Interval history: Patient is a 31-year-old 4 para 3002 who presented to the office today with complaint of pain and pressure. Exam in office revealed her to be approx imately 3 cm dilated and 50% effaced -3 station with no evidence of fully active contractions. Patient was admitted and given magnesium therapy as well as steroids for lung maturity. course has been relatively uncomplicated. Her labs are normal and her GBS is unknown. Patient reports: new complaints, movement normal Objective - Vital Signs Vital Signs: Vital Signs - 12hr 03/07/22 03/07/22 03/07/22 01:28 01:33 01:38 Temperature Pulse Rate 79 82 79 Respiratory Rate Blood Pressure O2 Sat by Pulse 97 97 97 Oximetry O2 Sat by Pulse Oximetry [ Bilateral Throughout] 03/07/22 03/07/22 03/07/22 01:40 01:43 01:48 Temperature Pulse Rate 78 77 81 Respiratory Rate Blood Pressure 100/65 O2 Sat by Pulse 97 97 Oximetry O2 Sat by Pulse Oximetry [ Bilateral Throughout] 03/07/22 03/07/22 03/07/22 01:53 01:58 02:03 Temperature Pulse Rate 75 84 80 Respiratory Rate Blood Pressure O2 Sat by Pulse 97 97 97 Oximetry O2 Sat by Pulse Oximetry [ Bilateral Throughout] 03/07/22 03/07/22 03/07/22 02:08 02:13 02:18 Temperature Pulse Rate 77 82 77 Respiratory Rate Blood Pressure O2 Sat by Pulse 98 97 98 Oximetry O2 Sat by Pulse Oximetry [ Bilateral Throughout] 03/07/22 03/07/22 03/07/22 02:23 02:28 02:33 Temperature Pulse Rate 78 79 82 Respiratory Rate Blood Pressure O2 Sat by Pulse 97 97 98 Oximetry O2 Sat by Pulse Oximetry [ Bilateral Throughout] 03/07/22 03/07/22 03/07/22 02:38 02:40 02:43 Temperature Pulse Rate 73 72 75 Respiratory Rate Blood Pressure 91/50 O2 Sat by Pulse 97 98 Oximetry O2 Sat by Pulse Oximetry [ Bilateral Throughout] 03/07/22 03/07/22 03/07/22 02:48 02:53 02:58 Temperature Pulse Rate 78 77 72 Respiratory Rate Blood Pressure O2 Sat by Pulse 97 98 97 Oximetry O2 Sat by Pulse Oximetry [ Bilateral Throughout] 03/07/22 03/07/22 03/07/22 03:03 03:08 03:13 Temperature Pulse Rate 78 81 81 Respiratory Rate Blood Pressure O2 Sat by Pulse 97 97 98 Oximetry O2 Sat by Pulse Oximetry [ Bilateral Throughout] 03/07/22 03/07/22 03/07/22 03:18 03:23 03:28 Temperature Pulse Rate 80 81 83 Respiratory Rate Blood Pressure O2 Sat by Pulse 98 97 98 Oximetry O2 Sat by Pulse Oximetry [ Bilateral Throughout] 03/07/22 03/07/22 03/07/22 03:33 03:38 03:40 Temperature Pulse Rate 79 82 74 Respiratory Rate Blood Pressure 105/66 O2 Sat by Pulse 97 98 Oximetry O2 Sat by Pulse Oximetry [ Bilateral Throughout] 03/07/22 03/07/22 03/07/22 03:43 03:48 03:53 Temperature Pulse Rate 77 75 86 Respiratory Rate Blood Pressure O2 Sat by Pulse 99 99 98 Oximetry O2 Sat by Pulse Oximetry [ Bilateral Throughout] 03/07/22 03/07/22 03/07/22 03:58 04:03 04:06 Temperature Pulse Rate 78 85 91 H Respiratory Rate Blood Pressure O2 Sat by Pulse 99 97 90 Oximetry O2 Sat by Pulse Oximetry [ Bilateral Throughout] 03/07/22 03/07/22 03/07/22 04:08 04:13 04:18 Temperature Pulse Rate 79 80 81 Respiratory Rate Blood Pressure O2 Sat by Pulse 99 99 99 Oximetry O2 Sat by Pulse Oximetry [ Bilateral Throughout] 03/07/22 03/07/22 03/07/22 04:23 04:28 04:33 Temperature Pulse Rate 82 82 78 Respiratory Rate Blood Pressure O2 Sat by Pulse 99 99 99 Oximetry O2 Sat by Pulse Oximetry [ Bilateral Throughout] 03/07/22 03/07/22 03/07/22 04:38 04:40 04:43 Temperature Pulse Rate 83 77 77 Respiratory Rate Blood Pressure 106/67 O2 Sat by Pulse 98 98 Oximetry O2 Sat by Pulse Oximetry [ Bilateral Throughout] 03/07/22 03/07/22 03/07/22 04:48 04:53 04:58 Temperature Pulse Rate 88 82 82 Respiratory Rate Blood Pressure O2 Sat by Pulse 98 99 98 Oximetry O2 Sat by Pulse Oximetry [ Bilateral Throughout] 03/07/22 03/07/22 03/07/22 05:03 05:08 05:13 Temperature Pulse Rate 78 86 79 Respiratory Rate Blood Pressure O2 Sat by Pulse 98 98 99 Oximetry O2 Sat by Pulse Oximetry [ Bilateral Throughout] 03/07/22 03/07/22 03/07/22 05:18 05:23 05:28 Temperature Pulse Rate 80 82 83 Respiratory Rate Blood Pressure O2 Sat by Pulse 98 98 99 Oximetry O2 Sat by Pulse Oximetry [ Bilateral Throughout] 03/07/22 03/07/22 03/07/22 05:33 05:38 05:39 Temperature Pulse Rate 82 88 81 Respiratory Rate Blood Pressure 109/70 O2 Sat by Pulse 99 98 Oximetry O2 Sat by Pulse Oximetry [ Bilateral Throughout] 03/07/22 03/07/22 03/07/22 05:43 05:48 05:53 Temperature Pulse Rate 81 94 H 83 Respiratory Rate Blood Pressure O2 Sat by Pulse 98 98 98 Oximetry O2 Sat by Pulse Oximetry [ Bilateral Throughout] 03/07/22 03/07/22 03/07/22 05:58 06:03 06:08 Temperature Pulse Rate 86 82 94 H Respiratory Rate Blood Pressure O2 Sat by Pulse 97 98 97 Oximetry O2 Sat by Pulse Oximetry [ Bilateral Throughout] 03/07/22 03/07/22 03/07/22 06:13 06:18 06:23 Temperature Pulse Rate 78 81 79 Respiratory Rate Blood Pressure O2 Sat by Pulse 98 97 97 Oximetry O2 Sat by Pulse Oximetry [ Bilateral Throughout] 03/07/22 03/07/22 03/07/22 06:28 06:33 06:38 Temperature Pulse Rate 77 83 85 Respiratory Rate Blood Pressure O2 Sat by Pulse 99 99 97 Oximetry O2 Sat by Pulse Oximetry [ Bilateral Throughout] 03/07/22 03/07/22 03/07/22 06:40 06:43 06:48 Temperature Pulse Rate 75 84 80 Respiratory Rate Blood Pressure 101/64 O2 Sat by Pulse 98 98 Oximetry O2 Sat by Pulse Oximetry [ Bilateral Throughout] 03/07/22 03/07/22 03/07/22 06:53 06:58 07:03 Temperature Pulse Rate 82 86 87 Respiratory Rate Blood Pressure O2 Sat by Pulse 98 98 97 Oximetry O2 Sat by Pulse Oximetry [ Bilateral Throughout] 03/07/22 03/07/22 03/07/22 07:08 07:13 07:15 Temperature 97.8 F Pulse Rate 88 88 Respiratory 20 Rate Blood Pressure O2 Sat by Pulse 98 99 Oximetry O2 Sat by Pulse 98 Oximetry [ Bilateral Throughout] 03/07/22 03/07/22 03/07/22 07:18 07:23 07:28 Temperature Pulse Rate 82 84 79 Respiratory Rate Blood Pressure O2 Sat by Pulse 99 98 99 Oximetry O2 Sat by Pulse Oximetry [ Bilateral Throughout] 03/07/22 03/07/22 03/07/22 07:33 07:38 07:39 Temperature Pulse Rate 82 82 81 Respiratory Rate Blood Pressure 104/70 O2 Sat by Pulse 99 97 Oximetry O2 Sat by Pulse Oximetry [ Bilateral Throughout] 03/07/22 03/07/22 03/07/22 07:43 07:48 07:53 Temperature Pulse Rate 80 77 84 Respiratory Rate Blood Pressure O2 Sat by Pulse 97 98 98 Oximetry O2 Sat by Pulse Oximetry [ Bilateral Throughout] 03/07/22 03/07/22 03/07/22 07:58 08:03 08:08 Temperature Pulse Rate 83 82 80 Respiratory Rate Blood Pressure O2 Sat by Pulse 98 99 99 Oximetry O2 Sat by Pulse Oximetry [ Bilateral Throughout] 03/07/22 03/07/22 03/07/22 08:13 08:18 08:19 Temperature Pulse Rate 104 H 102 H 100 H Respiratory Rate Blood Pressure O2 Sat by Pulse 97 98 94 Oximetry O2 Sat by Pulse Oximetry [ Bilateral Throughout] 03/07/22 03/07/22 03/07/22 08:23 08:28 08:33 Temperature Pulse Rate 106 H 104 H 87 Respiratory Rate Blood Pressure O2 Sat by Pulse 99 99 99 Oximetry O2 Sat by Pulse Oximetry [ Bilateral Throughout] 03/07/22 03/07/22 03/07/22 08:38 08:43 08:48 Temperature Pulse Rate 104 H 82 85 Respiratory Rate Blood Pressure O2 Sat by Pulse 98 99 97 Oximetry O2 Sat by Pulse Oximetry [ Bilateral Throughout] 03/07/22 03/07/22 03/07/22 08:53 08:58 09:03 Temperature Pulse Rate 102 H 89 97 H Respiratory Rate Blood Pressure O2 Sat by Pulse 97 97 97 Oximetry O2 Sat by Pulse Oximetry [ Bilateral Throughout] 08/03/07/22 03/07/22 09:08 09:13 09:18 Temperature Pulse Rate 98 H 99 H 95 H Respiratory Rate Blood Pressure O2 Sat by Pulse 97 97 98 Oximetry O2 Sat by Pulse Oximetry [ Bilateral Throughout] 03/07/22 03/07/22 03/07/22 09:23 09:28 09:33 Temperature Pulse Rate 101 H 97 H 95 H Respiratory Rate Blood Pressure O2 Sat by Pulse 98 98 97 Oximetry O2 Sat by Pulse Oximetry [ Bilateral Throughout] 03/07/22 03/07/22 03/07/22 09:35 09:38 09:40 Temperature Pulse Rate 194 H 143 H Respiratory Rate Blood Pressure O2 Sat by Pulse 74 L 78 L 85 Oximetry O2 Sat by Pulse Oximetry [ Bilateral Throughout] 03/07/22 03/07/22 03/07/22 09:57 09:58 10:02 Temperature Pulse Rate 121 H Respiratory Rate Blood Pressure O2 Sat by Pulse 73 L 83 L 93 Oximetry O2 Sat by Pulse Oximetry [ Bilateral Throughout] 03/07/22 03/07/22 03/07/22 10:08 10:18 10:23 Temperature Pulse Rate 139 H Respiratory Rate Blood Pressure O2 Sat by Pulse 83 L 84 75 L Oximetry O2 Sat by Pulse Oximetry [ Bilateral Throughout] 03/07/22 03/07/22 03/07/22 10:24 10:29 10:34 Temperature Pulse Rate 98 H 94 H 92 H Respiratory Rate Blood Pressure O2 Sat by Pulse 98 99 99 Oximetry O2 Sat by Pulse Oximetry [ Bilateral Throughout] 03/07/22 03/07/22 03/07/22 10:39 10:44 10:49 Temperature Pulse Rate 95 H 90 90 Respiratory Rate Blood Pressure O2 Sat by Pulse 98 99 98 Oximetry O2 Sat by Pulse Oximetry [ Bilateral Throughout] 03/07/22 03/07/22 03/07/22 10:54 10:59 11:04 Temperature Pulse Rate 92 H 95 H 89 Respiratory Rate Blood Pressure O2 Sat by Pulse 98 98 99 Oximetry O2 Sat by Pulse Oximetry [ Bilateral Throughout] 03/07/22 03/07/22 03/07/22 11:09 11:16 11:21 Temperature Pulse Rate 96 H 87 96 H Respiratory Rate Blood Pressure O2 Sat by Pulse 100 99 100 Oximetry O2 Sat by Pulse Oximetry [ Bilateral Throughout] 03/07/22 03/07/22 03/07/22 11:26 11:31 11:36 Temperature Pulse Rate 82 94 H 78 Respiratory Rate Blood Pressure O2 Sat by Pulse 100 99 99 Oximetry O2 Sat by Pulse Oximetry [ Bilateral Throughout] 03/07/22 03/07/22 03/07/22 11:41 11:46 11:51 Temperature Pulse Rate 79 85 89 Respiratory Rate Blood Pressure O2 Sat by Pulse 99 98 99 Oximetry O2 Sat by Pulse Oximetry [ Bilateral Throughout] 03/07/22 03/07/22 03/07/22 11:56 12:01 12:06 Temperature Pulse Rate 77 76 84 Respiratory Rate Blood Pressure O2 Sat by Pulse 99 99 98 Oximetry O2 Sat by Pulse Oximetry [ Bilateral Throughout] 03/07/22 03/07/22 03/07/22 12:11 12:16 12:21 Temperature Pulse Rate 90 106 H 102 H Respiratory Rate Blood Pressure O2 Sat by Pulse 99 100 97 Oximetry O2 Sat by Pulse Oximetry [ Bilateral Throughout] 03/07/22 03/07/22 03/07/22 12:26 12:31 12:33 Temperature Pulse Rate 93 H 94 H 86 Respiratory Rate Blood Pressure 105/53 O2 Sat by Pulse 99 99 Oximetry O2 Sat by Pulse Oximetry [ Bilateral Throughout] 03/07/22 03/07/22 03/07/22 12:36 12:41 12:46 Temperature Pulse Rate 84 87 80 Respiratory Rate Blood Pressure O2 Sat by Pulse 99 98 98 Oximetry O2 Sat by Pulse Oximetry [ Bilateral Throughout] 03/07/22 03/07/22 03/07/22 12:51 12:56 13:01 Temperature Pulse Rate 86 95 H 90 Respiratory Rate Blood Pressure O2 Sat by Pulse 99 98 99 Oximetry O2 Sat by Pulse Oximetry [ Bilateral Throughout] 03/07/22 03/07/22 03/07/22 13:06 13:11 13:16 Temperature Pulse Rate 89 93 H 89 Respiratory Rate Blood Pressure O2 Sat by Pulse 99 98 98 Oximetry O2 Sat by Pulse Oximetry [ Bilateral Throughout] 03/07/22 13:21 Temperature Pulse Rate 94 H Respiratory Rate Blood Pressure O2 Sat by Pulse 98 Oximetry O2 Sat by Pulse Oximetry [ Bilateral Throughout] - Exam Breasts: deferred Lungs: Clear to auscultation Abdomen: Present: normal appearance, soft, normal bowel sounds Cervical Dilatation: 3 Cervical Effacement Percentage: 50 Uterine Contraction Pattern: Irregular - Labs Labs: Abnormal Labs 03/06/22 03/06/22 03/06/22 06:07 06:07 10:31 WBC 13.6 H Magnesium 6.00 H 6.80 H 03/06/22 03/06/22 15:36 22:34 WBC Magnesium 5.40 H 5.20 H Laboratory Results - last 24 hr 03/06/22 03/06/22 15:36 22:34 Magnesium 5.40 H 5.20 H
--- NOTE | 2022-03-08 07:28 | Discharge Summary ---
Providers - Providers Date of Admission: 03/05/22 14:46 Date of discharge: 03/08/22 Attending physician: JUSTYN SHRESTHA 03/05/22 23:58 Consult to Physician [CONS] Routine Comment: Consulting Provider: ROMEL CORTES Physician Instructions: patient known-timing of delivery Reason For Exam: labor 03/05/22 23:59 Consult to Dietitian/Nutrition [CONS] Routine Physician Instructions: Reason For Exam: Reason for Consult: Diet education Primary care physician: JUSTYN SHRESTHA Hospitalization Reason for admission: labor Discharge diagnosis: other ( labor) Hospital course: The patient was admitted with irregular uterine contractions and cervical dilatation 3 cm. She was observed and received steroid therapy during her hospitalization. She remained clinically stable and was discharged home Condition at discharge: Good Disposition: 01 HOME / SELF CARE / HOMELESS Plan - Provider Discharge Summary Activity: no sex for 6 weeks, no heavy lifting 4 weeks, no strenuous exercise Diet: routine Instructions: routine Additional instructions: [] Smoking cessation referral if applicable(refer to patient education folder for contact #) [] Refer to [facility] Booklet Call your doctor immediately for: * Fever > 100.5 * Heavy vaginal bleeding ( >1 pad per hour) * Severe persistent headache * Shortness of breath * Reddened, hot, painful area to leg or breast * - Follow up plan Follow up: JUSTYN SHRESTHA MD [Primary Care Provider] - 7 Days
[2022-03-08 08:40] VITALS: BP 112/54
== END 2022-03-08 10:02 | disposition home or self-care (01) | DRG 833 ==
LOC: APU 14:46 → LD 15:16
PROVIDERS: ADMIT Obstetrics & Gynecology; ATTEND Obstetrics & Gynecology
DX: O60.03 Preterm labor without delivery, third trimester (principal); Z20.822 Contact with and (suspected) exposure to COVID-19; Z3A.32 32 weeks gestation of pregnancy
CPT/HCPCS: 36415; 81001; 83735; 85027; 86592; 86850; 86900; 86901; G0378; J0702; J3475; J7120; U0003

== ENCOUNTER 2022-04-03 14:44 | Outpatient (CLI) | payer BC ==
[2022-04-03] MEDS: LACTATED RINGERS 1,000 ML IV SCH ×2 (16:14→17:08)
[2022-04-03] MEDS: TERBUTALINE 1 MG/1 ML INJ SUB-Q SCH ×2 (18:46→19:54)
[2022-04-03 19:37] VITALS: BP 112/69
== END 2022-04-03 21:12 | disposition home or self-care (01) ==
LOC: TRG 14:44 → APU 14:53 → TRG 21:12
PROVIDERS: ATTEND Obstetrics & Gynecology
DX: O62.9 Abnormality of forces of labor, unspecified (principal); O36.5930 Maternal care for other known or suspected poor fetal growth, third trimester, not applicable or unspecified; Z3A.36 36 weeks gestation of pregnancy
CPT/HCPCS: 59025; 96360; 96361; 96372; J3105; J7120

== ENCOUNTER 2022-04-08 13:04 | Inpatient (IN) | payer BC ==
[2022-04-08] MEDS ORDERED: TERBUTALINE 1 MG/1 ML INJ SUB-Q NR (13:47)
[2022-04-08] MEDS ORDERED: OXYTOCIN DRIP 30 UNITS/500 ML BAG IV SCH ×3 (14:00→19:12)
--- NOTE | 2022-04-08 14:53 | History and Physical Report ---
History of Present Illness Date of examination: 04/08/22 Date of admission: 04/08/22 13:47 Chief complaint: I'm having contractions History of present illness: Patient is a 31-year-old 5 para 4-0-1-3 who presents with contractions at 37 weeks and EDC 04/29/2022. Patient's course has been complicated by labor for which she was dilated to 3 cm and treated with steroids in February. This is also complicated by IUGR. Her last was delivered via . The later secondary to developmental anomalies. Past History Past Medical History: no pertinent history Past Surgical History: section Social history: - Obstetrical History Expected Date of Delivery: 04/29/22 Actual Gestation: 37 Week(s) 0 Day(s) : 5 Medications and Allergies Allergies Allergy/AdvReac Type Severity Reaction Status Date / Time No Known Allergies Allergy Verified 04/03/22 15:10 Home Medications Medication Instructions Recorded Confirmed Last Taken Type Docusate Sodium [Colace] 100 mg PO BID #60 capsule 02/06/21 Unknown Rx FLUoxetine [PROzac] 10 mg PO QDAY 30 Days #30 tablet 02/06/21 Unknown Rx Ferrous Sulfate [Feosol 325 MG tab] 325 mg PO BID #60 tablet 02/06/21 Unknown Rx Ibuprofen [Motrin] 800 mg PO Q8HR PRN #40 tablet 02/06/21 Unknown Rx oxyCODONE /ACETAMINOPHEN [Percocet 2 tab PO Q6HR PRN #40 tablet 02/06/21 U nknown Rx 5/325] traZODone [Desyrel] 50 mg PO QHS 30 Days #30 tab 02/06/21 Unknown Rx Active Meds: Active Medications Acetaminophen (Acetaminophen 325 Mg Tab) 650 mg PO Q4H PRN PRN Reason: Pain, Mild (1-3) Butorphanol Tartrate (Butorphanol 2 Mg/1 Ml Inj) 1 mg IV Q2H PRN PRN Reason: Pain, Moderate(4-6) LABOR PAIN Butorphanol Tartrate (Butorphanol 2 Mg/1 Ml Inj) 2 mg IV Q2H PRN PRN Reason: Pain , Severe (7-10) Carboprost Tromethamine (Carboprost Tromethamine 250 Mcg/1 Ml Inj) 250 mcg IM ONCE NR Stop: 04/08/22 23:59 Ephedrine Sulfate (Ephedrine Sulfate 50 Mg/1 Ml Inj) 10 mg IV Q2M PRN PRN Reason: Hypotension Fentanyl (Fentanyl 100 Mcg/2 Ml Inj) 100 mcg IV Q2H PRN PRN Reason: Pain,Severe (7-10) LABOR PAIN Oxytocin/Sodium Chloride (Pitocin/Ns 30 Unit/500ml) 30 units in 500 mls @ 2 mls/hr IV TITR RELL; Protocol Lactated Ringer's (Lactated Ringers) 1,000 mls @ 125 mls/hr IV DIRECT RELL Oxytocin/Sodium Chloride (Pitocin/Ns 30 Unit/500ml) 30 units in 500 mls @ 40 mls/hr IV TITR RELL; Protocol Ampicillin Sodium (Ampicillin/Ns 1 Gm/50 Ml) 1 gm in 50 mls @ 100 mls/hr IV Q4H RELL; Protocol Ampicillin Sodium (Ampicillin/Ns 2 Gm/100 Ml) 2 gm in 100 mls @ 100 mls/hr IV ONCE NR; Protocol Stop: 04/08/22 23:59 Lidocaine (Lidocaine (2%) 20 Mg/1 Ml Vial 20 Ml Mdv) 20 ml INFILTRATI ONCE NR Stop: 04/08/22 23:59 Loperamide HCl (Loperamide 2 Mg Cap) 2 mg PO ONCE NR Stop: 04/08/22 23:59 Methylergonovine Maleate (Methylergonovine Maleate 0.2 Mg/Ml Vial) 0.2 mg IM ONCE NR Stop: 04/08/22 23:59 Mineral Oil (Mineral Oil 30 Ml Oral Liqd) 30 ml PO QHS PRN PRN Reason: Constipation Misoprostol (Misoprostol 200 Mcg Tab) 800 mcg [place] ONCE NR Stop: 04/08/22 23:59 Nalbuphine HCl (Nalbuphine 10 Mg/1 Ml Inj) 10 mg IV Q2H PRN PRN Reason: Pain, Moderate (4-6) Ondansetron HCl (Ondansetron 4 Mg/2 Ml Inj) 4 mg IV Q8H PRN PRN Reason: Nausea And Vomiting Oxytocin (Oxytocin 10 Unit/1 Ml Inj) 10 unit IM ONCE NR Stop: 04/08/22 23:59 Terbutaline Sulfate (Terbutaline 1 Mg/1 Ml Inj) 0.25 mg SUB-Q ONCE NR Stop: 04/08/22 23:59 Review of Systems All systems: negative Constitutional: fatigue, malaise Gastrointestinal: abdominal pain Genitourinary: pelvic pain, contractions - Vital Signs Vital signs: Vital Signs Pulse BP Pulse Ox 102 H 109/71 99 04/08/22 13:56 04/08/22 13:56 04/08/22 13:56 Temp Pulse Resp BP Pulse Ox 85 109/71 100 04/08/22 14:46 04/08/22 13:56 04/08/22 14:46 - Physical Exam Breasts: Cardiovascular: Regular rate, Normal S1, Normal S2 Lungs: Positive: Clear to auscultation, Normal air movement Abdomen: Positive: normal appearance, soft, normal bowel sounds. Negative: distention, tenderness Genitourinary (Female): Positive: normal external genitalia, normal perenium Vulva: both: normal Vagina: Positive: normal moisture. Negative: discharge Cervix: Negative: lesion, discharge Uterus: Positive: normal size, normal contour Adnexa: both: normal Anus/Rectum: Positive: normal perianal skin, heme negative. Negative: rectal mass, hemorrhoids Extremities: Deep Tendon Reflex Grade: Normal +2 - Obstetrical FHR: auscultation normal Cervical Dilatation: 7 Cervical Effacement Percentage: 90 station: 0 Uterine Contraction Pattern: Regular Uterine Tone Measurement Phase: Contraction Uterine Contraction Intensity: Strong/Firm Results Result Diagrams: 04/08/22 14:15 All other labs normal. Assessment and Plan IUP at 37 weeks here with active labor. Patient also has IUGR. She is GBS negative. Her course otherwise complicated by contractions. Will admit for labor. AROM when able. Patient to have epidural if desired. Anticipate .
[2022-04-08 14:58] LABS: Hematocrit 31.2 % (30.3-42.9); Hemoglobin 10.3 gm/dl (10.1-14.3); Mean Corpuscular HGB Conc 33 % (30-34); Mean Corpuscular Volume 79 fl (79-97); Platelet Count 236 K/mm3 (140-440); Red Blood Count 3.94 M/mm3 (3.65-5.03); Red Cell Distribution Width 16.1 % (13.2-15.2)
[2022-04-08] MEDS ORDERED: LIDOCAINE (2%) 20 MG/1 ML VIAL 20 ML MDV INFILTRATI NR (15:00)
[2022-04-08] MEDS ORDERED: miSOPROStol 200 MCG TAB PR NR (15:00)
[2022-04-08] MEDS ORDERED: NalbUPHINE 10 MG/1 ML INJ IV PRN (15:00)
[2022-04-08] MEDS ORDERED: LOPERAMIDE 2 MG CAP PO NR (15:00)
[2022-04-08] MEDS ORDERED: fentaNYL 100 MCG/2 ML INJ IV PRN (15:00)
[2022-04-08] MEDS ORDERED: OXYTOCIN 10 UNIT/1 ML INJ IM NR (15:00)
[2022-04-08] MEDS ORDERED: CARBOPROST TROMETHAMINE 250 MCG/1 ML INJ IM NR (15:00)
[2022-04-08] MEDS ORDERED: ONDANSETRON 4 MG/2 ML INJ IV PRN ×2 (15:00→19:12)
[2022-04-08] MEDS ORDERED: ACETAMINOPHEN 325 MG TAB PO PRN ×2 (15:00→19:12)
[2022-04-08] MEDS ORDERED: AMPICILLIN/NS 2 GM/100 ML 2 GM/100 ML BAG IV NR (15:00)
[2022-04-08] MEDS ORDERED: ePHEDrine SULFATE 50 MG/1 ML INJ IV PRN ×2 (15:00→16:18)
[2022-04-08] MEDS ORDERED: BUTORPHANOL 2 MG/1 ML INJ IV PRN ×2 (15:00)
[2022-04-08] MEDS ORDERED: METHYLERGONOVINE MALEATE 0.2 MG/ML VIAL IM NR (15:00)
[2022-04-08] MEDS: LACTATED RINGERS 1,000 ML IV SCH ×3 (15:22→16:39)
[2022-04-08] MEDS ORDERED: fentaNYL-BUPIV 2 MCG/ML-0.125% 200 MCG/100 ML BAG EPIDURAL SCH (16:18)
[2022-04-08] MEDS ORDERED: NALOXONE 0.4 MG/1 ML INJ IV PRN (16:18)
--- NOTE | 2022-04-08 16:19 | Anesthesia Consultation ---
Anesthesia Consult and Med Hx Date of service: 04/08/22 - Airway Anesthetic Teeth Evaluation: Good ROM Head & Neck: Adequate Mental/Hyoid Distance: Adequate Mallampati Class: Class II Intubation Access Assessment: Probably Good - Pulmonary Exam CTA: Yes - Cardiac Exam Cardiac Exam: RRR - Pre-Operative Health Status ASA Pre-Surgery Classification: ASA2 Proposed Anesthetic Plan: Epidural - Pulmonary Hx Smoking: No Hx Asthma: No Hx Respiratory Symptoms: No SOB: No COPD: No Hx Pneumonia: No Hx Sleep Apnea: No - Cardiovascular System Hx Hypertension: No Hx Coronary Artery Disease: No Hx Heart Attack/AMI: No Hx Angina: No Hx Percutaneous Transluminal Coronary Angioplasty (PTCA): No Hx Cardia Arrhythmia: No Hx Pacemaker: No Hx Internal Defibrillator: No Hx Valvular Heart Disease: No Hx Heart Murmur: No Hx Peripheral Vascular Disease: No - Central Nervous System Hx Neuromuscular Disorder: No Hx Seizures: No CVA: No Hx Back Pain: No Hx Psychiatric Problems: No - Gastrointestinal Hx Ulcer: No Hx Gastroesophageal Reflux Disease: No - Endocrine Hx Renal Disease: No Hx End Stage Renal Disease: No Hx Cirrhosis: No Hx Liver Disease: No Hx Insulin Dependent Diabetes: No Hx Non-Insulin Dependent Diabetes: No Hx Thyroid Disease: No Hx Hypothyroidism: No Hx Hyperthyroidism: No - Hematic Hx Anemia: No Hx Sickle Cell Disease: No - Other Systems Hx Alcohol Use: No Hx Substance Use: No Hx Cancer: No Hx Obesity: No
--- NOTE | 2022-04-08 16:20 | Anesthesia Day of Surgery ---
Anesthesia Day of Surgery - Day of Surgery Patient Examined: Yes Patient H&P Reviewed: Yes Patient is NPO: Yes Beta Blockers: No Cardiac Clearance: No Pulmonary Clearance: No Neil's Test: N/A
--- NOTE | 2022-04-08 16:20 | Progress Note ---
Labor Epidural - Labor Epidural Start Time: 16:01 Stop Time: 16:10 Performed by:: CLINT APONTE Procedure: Epidural Requested for Labor Pain. H&P and PT Chart reviewed and consent obtained. Time out performed and the procedure was explained, all questions answered. Patient was placed in a sitting position with monitors applied. The PTs back was prepped and draped in usual sterile fashion. The Skin was localized with 3 mL of 1% lidocaine at L3-L4. A 17-gauge Touhy epidural needle was advanced to SARAH with saline at 7 cm and no blood/CSF was noted via epidural needle. Epidural catheter was advanced to 12 cm. There was negative aspiration for blood and CSF in the catheter and negative response to a test dose of 3 ml 1.5% lidocaine w/ Epi and a sterile dressing was applied Patient tolerated the procedure well and there were no immediate complications noted.
[2022-04-08] MEDS ORDERED: MINERAL OIL 30 ML ORAL LIQD ONE (16:50)
--- NOTE | 2022-04-08 17:06 | Procedure Note ---
OB Delivery Note - Delivery Date of Delivery: 04/08/22 Surgeon: JUSTYN SHRESTHA Estimated blood loss: <100cc - Vaginal Delivery position: OA Intrapartum events: none, other(please specify) () Delivery induction: none Delivery augmentation: rupture of membranes Delivery monitor: none Route of delivery: Delivery placenta: spontaneous Delivery cord: 3 umbilical vessels Episiotomy: none Delivery laceration: none Anesthesia: none Delivery comments: live male delivered over intact perineum. Placenta delivered with baby spontaneously and intact. No lacerations. Baby to mothers chest, dried and stimulated. Cord clamped and cut after pulse cessation. EBL <50. Fundus firm at U. Excellent hemostasis. Counts correct x2. - Infant A at 1 minute: 8 at 5 minutes: 9 Infant Gender: Male (5lb 14oz)
[2022-04-08] MEDS ORDERED: AMPICILLIN/NS 1 GM/50 ML 1 GM/50 ML BAG IV SCH (18:00)
[2022-04-08] MEDS ORDERED: PROMETHAZINE 25 MG RECT SUPP PR PRN (19:12)
[2022-04-08] MEDS ORDERED: MAGNESIUM HYDROXIDE (MOM) ORAL LIQD UDC PO PRN (19:12)
[2022-04-08] MEDS ORDERED: diphenhydrAMINE 25 MG CAP PO PRN (19:12)
[2022-04-08] MEDS ORDERED: PROMETHAZINE 25 MG TAB PO PRN (19:12)
[2022-04-08] MEDS ORDERED: WITCH HAZEL/ GLYCERIN PAD TP PRN (19:12)
[2022-04-08] MEDS ORDERED: LANOLIN/ZINC/DIMETHICONE (LANSINOH) 7 GM TP PRN (19:12)
[2022-04-08] MEDS: IBUPROFEN 800 MG TAB PO SCH (19:32)
[2022-04-08] MEDS ORDERED: MINERAL OIL 30 ML ORAL LIQD PO PRN (22:00)
[2022-04-09] MEDS: IBUPROFEN 800 MG TAB PO SCH ×3 (01:15→18:35)
[2022-04-09] MEDS: DOCUSATE SODIUM 100 MG CAP PO SCH ×2 (01:17→13:33)
[2022-04-09] MEDS: HYDROcodone/ACETAMINOPHEN 5-325 MG TAB PO PRN (04:28)
[2022-04-09 05:42] LABS: Hematocrit 31.3 % (30.3-42.9)
[2022-04-09] MEDS: PRENATAL VIT27-FE FUMARATE-FOLIC ACID VIT TAB PO SCH (13:33)
[2022-04-10] MEDS: IBUPROFEN 800 MG TAB PO SCH ×3 (00:37→17:26)
--- NOTE | 2022-04-10 05:56 | Post Anesthesia Evaluation ---
- Post Anesthesia Evaluation Patient Participated: No Airway Patent: Yes Stable Respiratory Function: Yes Nausea/Vomiting: No Temp > 96.8F: Yes Pain Manageable: Yes Adequeate Hydration: Yes Anesthesia Complications: No Block Receding Appropriately: Yes Patient on Ventilator: No
--- NOTE | 2022-04-10 09:16 | Discharge Summary ---
Providers - Providers Date of Admission: 04/08/22 13:47 Date of discharge: 04/10/22 Attending physician: JUSTYN SHRESTHA Primary care physician: JUSTYN SHRESTHA Hospitalization Reason for admission: active labor Delivery: Episiotomy: none Laceration: none complications: none Discharge diagnosis: IUP at term delivered baby: male Hospital course: unremarkable Condition at discharge: Good Disposition: 30 STILL A PATIENT Plan - Discharge Medications Prescriptions: Ferrous Sulfate [Feosol 325 MG tab] 325 mg PO BID #60 tablet Ibuprofen [Motrin] 800 mg PO Q8HR PRN #40 tablet PRN Reason: Pain, Moderate (4-6) HYDROcodone/APAP 5-325 [Chelsea 5/325] 1 each PO Q6HR PRN #15 tablet PRN Reason: Pain - Provider Discharge Summary Activity: routine, no sex for 6 weeks, no heavy lifting 4 weeks, no strenuous exercise Diet: routine Instructions: routine Additional instructions: [] Smoking cessation referral if applicable(refer to patient education folder for contact #) [] Refer to [facility] Booklet Call your doctor immediately for: * Fever > 100.5 * Heavy vaginal bleeding ( >1 pad per hour) * Severe persistent headache * Shortness of breath * Reddened, hot, painful area to leg or breast * Drainage or odor from incision. * Keep incision clean and dry at all times and follow doctor's instructions regarding bathing/showering - Follow up plan Follow up: JUSTYN SHRESTHA MD [Primary Care Provider] - 6 Weeks Forms: [facility] Discharge Summary
[2022-04-10] MEDS: HYDROcodone/ACETAMINOPHEN 5-325 MG TAB PO PRN (09:44)
[2022-04-10] MEDS: DOCUSATE SODIUM 100 MG CAP PO SCH (09:45)
[2022-04-10] MEDS: PRENATAL VIT27-FE FUMARATE-FOLIC ACID VIT TAB PO SCH (09:45)
[2022-04-10 18:03] VITALS: BP 135/89
== END 2022-04-10 19:03 | disposition home or self-care (01) | DRG 807 ==
LOC: TRG 13:04 → LD 13:06 → TRG 13:47 → LD 13:47 → OB 21:06
PROVIDERS: ADMIT Obstetrics & Gynecology; ATTEND Obstetrics & Gynecology
PROC: 10907ZC Drainage of Amniotic Fluid, Therapeutic from Products of Conception, Via Natural or Artificial Opening (ICD-10-PCS; principal; 2022-04-08)
PROC: 10E0XZZ Delivery of Products of Conception, External Approach (ICD-10-PCS; 2022-04-08)
PROC: 3E0R3BZ Introduction of Anesthetic Agent into Spinal Canal, Percutaneous Approach (ICD-10-PCS; 2022-04-08)
PROC: 00HU33Z Insertion of Infusion Device into Spinal Canal, Percutaneous Approach (ICD-10-PCS; 2022-04-08)
DX: O36.5930 Maternal care for other known or suspected poor fetal growth, third trimester, not applicable or unspecified (principal); Z37.0 Single live birth; Z20.822 Contact with and (suspected) exposure to COVID-19; O34.211 Maternal care for low transverse scar from previous cesarean delivery; Z3A.37 37 weeks gestation of pregnancy
CPT/HCPCS: 36415; 85014; 85018; 85027; 86592; 86850; 86900; 86901; G0378; J3490; J2405; J2590; J3010; J7120; U0003